=== PATIENT | male | born 1970 | race African-American/Black ===

== ENCOUNTER 2016-10-11 12:49 | Emergency (ER) | payer OTHER ==
[~2016-10-11] VITALS: Ht 190.5 cm; Wt 120.2 kg
[~2016-10-11 12:49] MED LIST: AMOXICILLIN500 MG ORAL; HYDROCHLOROTHIA25 MG ORAL; IBUPROFEN600 MG ORAL; NORCO 5-325 TA1 EACH ORAL; TRAMADOL HCL50 MG ORAL; UNOBMED
--- NOTE | 2016-10-11 13:29 | Emergency Room Report ---
History of Present Illness General Chief Complaint: Pain Source: Patient Present Illness HPI 46-year-old male presents emergency department complaining of 8/10 in severity right leg pain x4 days. Patient states he has a history of sciatica and describes his symptoms as his typical flare up of sciatica. Patient states pain radiates from the right radial area down the posterior right leg. He should denies recent travel patient denies calf pain. He says his pain is mainly localized in the thigh describes as a shooting sensation. exacerbated with forward flexion past 90*. Patient denies recent fall or trauma. Eyes nausea, vomiting, fevers, chills, abdominal pain. Pt also reports 1 week of cough with increased phlegm, denies ill contacts, denies wheezes, or SOB. Denies numbness tingling or loss of sensation or gross motor movements of the extremities, incontinence of bowel or bladder. Denies CP, Palpitations, LOC, AMS , dizziness, Changes in Vision, Sensation, paresthesias, or a sudden severe headache. Allergies: Coded Allergies: No Known Allergies (Unverified , 03/16/15) Patient History Past Medical History: see triage record Past Surgical History: none Pertinent Family History: none Immunizations: UTD Reviewed Nursing Documentation: PMH: Agreed, PSxH: Agreed Nursing Documentation-PMH Past Medical History: No History, Except For Hx Hypertension: Yes Hx Pacemaker: No Hx Asthma: Yes - Bronchitis Hx COPD: No Hx Diabetes: No Hx Cancer: No Hx Gastrointestinal Problems: No Hx Dialysis: No Hx Neurological Problems: No Hx Cerebrovascular Accident: No Hx Seizures: No Review of Systems All Other Systems: negative except mentioned in HPI Physical Exam Vital Signs Date Time Temp Pulse Resp B/P Pulse Ox O2 Delivery O2 Flow Rate FiO2 10/11/16 12:59 97.3 97 18 144/87 95 Room Air Sp02 EP Interpretation: reviewed, normal General Appearance: no apparent distress, alert, GCS 15, non-toxic Head: normocephalic, atraumatic Eyes: bilateral eye PERRL, bilateral eye normal inspection ENT: hearing grossly normal, normal pharynx, no angioedema, normal voice Neck: full range of motion, supple/symm/no masses Respiratory: lungs clear, normal breath sounds, speaking full sentences Cardiovascular #1: regular rate, rhythm, no edema Gastrointestinal: normal bowel sounds, non tender, soft, no guarding, no rebound Rectal: deferred Genitourinary: normal inspection, no CVA tenderness Musculoskeletal: back normal, gait/station normal, normal range of motion, no calf tenderness, other - Right gluteal and paraspinal TTP, no obvious deformities, exacerbated with forward flexion, no cauda equina, no incontinence. no midline ttp. Neurologic: alert, oriented x3, responsive, motor strength/tone normal, sensory intact, speech normal Psychiatric: judgement/insight normal, memory normal, mood/affect normal, no suicidal/homicidal ideation Reflexes: 4+ bicep (R), 4+ bicep (L), 4+ tricep (R), 4+ tricep (L), 4+ knee (R) , 4+ knee (L) Skin: normal color, no rash, warm/dry, well hydrated Lymphatic: no adenopathy Medical Decision Making PA Attestation Dr. Clemons is my supervising Physician whom patient management has been discussed with. Diagnostic Impression: Primary Impression: Sciatica Qualified Codes: M54.31 - Sciatica, right side Additional Impression: Upper respiratory infection, viral ER Course --46-year-old male presents emergency department complaining of 8/10 in severity right leg pain x4 days. Patient states he has a history of sciatica and describes his symptoms as his typical flare up of sciatica. Patient states pain radiates from the right radial area down the posterior right leg. He should denies recent travel patient denies calf pain. He says his pain is mainly localized in the thigh describes as a shooting sensation. Patient denies recent fall or trauma. Eyes nausea, vomiting, fevers, chills, abdominal pain. --Pt also reports 1 week of cough with increased phlegm, denies ill contacts, denies wheezes, or SOB. Ddx considered but are not limited to sciatica, DVT, Fracture, dislocation, contusion, epidural abscess, Sprain/Strain/Spasm, URI, pneumonia Vital signs: are WNL, pt. is afebrile H&PE are most consistent with sciatica. no obvious deformities, exacerbated with forward flexion, no cauda equina, no incontinence. ORDERS: X-ray not required at this time, no spinous process tenderness ED INTERVENTIONS: - IM Toradol 60mg. Re-Evaluation: pt. states his pain has subsided with ED interventions DISCHARGE: At this time pt. is stable for d/c to home. Will provide printed patient care instructions, and any necessary prescriptions. Care plan and follow up instructions have been discussed with the patient prior to discharge. Last Vital Signs Date Time Temp Pulse Resp B/P Pulse Ox O2 Delivery O2 Flow Rate FiO2 10/11/16 12:59 97.3 97 18 144/87 95 Room Air Disposition: HOME, SELF-CARE Condition: Stable Scripts Guaifenesin (Guaifenesin) 1,200 Mg Tab.er.12h 1200 MG PO BID for 7 Days, #14 TAB Prov: Betina Pedro 10/11/16 D-Methorphan Hb/Prometh Hcl* (PROMETHAZINE-DM SYRUP*) 118 Ml Syrup 5 ML ORAL Q6H Y for For Cough, #118 ML 0 Refills Prov: Betina Pedro 10/11/16 Cyclobenzaprine Hcl* (FLEXERIL*) 10 Mg Tablet 10 MG ORAL THREE TIMES A DAY for 7 Days, #21 TAB Prov: Betina Pedro 10/11/16 Patient Instructions: Sciatica, Upper Respiratory Infection, Adult, Easy-to- Read Additional Instructions: Take medications as directed. Follow up with PCP in 3-5 days Return sooner to ED if new symptoms occur, or current symptoms become worse. Do not drink alcohol, drive, or operate heavy machinery while taking muscle relaxers as this may cause drowsiness. - Please note that this Emergency Department Report was dictated using [employer] teacher technology software, occasionally this can lead to erroneous entry secondary to interpretation by the dictation equipment. Betina Pedro Oct 11, 2016 13:29
[2016-10-11] MEDS ORDERED: Ketorolac 60mg Inj IM ONE (13:30)
[2016-10-11] MEDS ORDERED: CYCLOBENZAPRINE10 MG ORAL (13:45)
[2016-10-11] MEDS ORDERED: GUAIFENESIN1200 MG PO (13:45)
[2016-10-11] MEDS ORDERED: PROMETHAZINE-D118 ML ORAL (13:45)
[2016-10-11 13:55] VITALS: BP 141/87
[2016-10-11 13:57] VITALS: BP 141/87
== END 2016-10-11 14:04 | disposition home or self-care (01) ==
LOC: EMR 13:44
DX: M54.31 Sciatica, right side (principal); J06.9 Acute upper respiratory infection, unspecified; I10 Essential (primary) hypertension; J45.909 Unspecified asthma, uncomplicated
CPT/HCPCS: 96372; 99284